=== PATIENT | male | born 1960 | race Caucasian/White ===

== ENCOUNTER 2017-05-12 05:20 | Inpatient (IN) | payer OTHER ==
[2017-05-12] VITALS (7 sets, daily range): BP systolic 110–140; BP diastolic 37–84
[~2017-05-12] VITALS: Ht 185.4 cm; Wt 113.4 kg
--- NOTE | ~2017-05-12 | O ---
[facility] [place] [address] OPERATIVE REPORT Name: YOU SANTILLAN Room #: 412-P [facility] IN M.R.#: [id number] Admission: 05/12/17 Attend Phys: Oliverio Crespo MD Discharge: Date of : 56 Report #: [id number] THIS REPORT FOR: //name// CC: Oliverio Griggs DATE OF SERVICE: 05/12/2017 PREOPERATIVE DIAGNOSIS: Multilevel degenerative lumbar spondylosis with spinal stenosis and radiculopathy, L3-L4, L4-L5 and L5-S1 levels. POSTOPERATIVE DIAGNOSIS: Multilevel degenerative lumbar spondylosis with spinal stenosis and radiculopathy, L3-L4, L4-L5 and L5-S1 levels. PROCEDURE: Bilateral decompressive laminectomy and foraminotomy for decompression of spinal stenosis and radiculopathy, L3-L4, L4-L5 and L5-S1 levels. SURGEON: Oliverio Crespo MD INDICATIONS: This 56-year-old gentleman complains of chronic progressive low back discomfort, but more severe radiating leg pain, numbness and weakness, more on the right than the left. These symptoms have been present for some time. We have discussed these issues in the past and recommended going ahead with surgical decompression. He elected to delay surgery and has tried to manage with more conservative measures, now has more significant dense radiating pain in the right leg and some sense of weakness. He occasionally has difficulty with ambulation. He has less severe symptoms on the left side. He has not had bowel or bladder symptoms. We have discussed once again treatment options and elected to go ahead with surgical decompression. I have explained that he does have some disk bulging at L3-L4 and L4-L5 levels with less severe bulge at L5-S1. These appeared to be chronic and firm disk bulge without soft disk herniation. The primary source of his spinal stenosis seems to be bony hypertrophy with facet spurring and hypertrophy of ligamentum. DESCRIPTION OF PROCEDURE: The patient was taken to the operating room where he was placed under general anesthesia. Prophylactic intravenous antibiotics were administered. He was turned to the prone position. The lower back was meticulously prepped and draped. C-arm was used to localize the appropriate levels. A skin incision was made extending from L3 down to the sacrum. This was carried along the paraspinal plane both toward the right and left. The paraspinal muscles were retracted out laterally exposing the spinous process and lamina at each level. The dissection was started distally at the lumbosacral junction. The canal was opened and found to be moderately tight at this level. Bony rongeurs were used to resect the spinous process and lamina. This was gradually advanced proximally to include the L5, L4, and L3 lamina both toward [address] [address] OPERATIVE REPORT Name: YOU SANTILLAN Room #: 412-P [facility] IN M.R.#: [id number] Admission: 05/12/17 Attend Phys: Oliverio Crespo MD Discharge: Date of : 56 Report #: [id number] the left and the right side. The facet joints for quite hypertrophied with significant spurring. There was also rather marked hypertrophy of the ligamentum causing significant stenosis, particularly at L3-L4 and L4-L5 levels. At L5-S1, the central canal was not so tight, but there was some foraminal narrowing, which was improved with undercutting of the facets and limited foraminotomy. C-arm was used to visualize the levels and confirm that I was above the L3 lamina and below the L5 lamina, which seemed to be clearly above and below the areas of significant stenosis. The side howe were debrided and undercut sufficiently to improve the foraminal stenosis. There was moderate constant oozing throughout the procedure while there were no large bleeders, small bleeders were addressed with cautery and packing. Nevertheless, total blood loss of the procedure was approximately 600 mL. The patient was stable throughout the procedure. At the conclusion once the dissection was finished, the wound was gently packed for several minutes and FloSeal was used in a small layer over the dura. This resulted in improved hemostasis. A single Hemovac was then left in the wound deep to the fascia, exiting through a separate stab incision. The fascia was then closed with multiple #1 Vicryl sutures. The subcutaneous tissues were closed with 0 Monocryl. The skin was closed with skin juan. A sterile dressing was applied. The patient was awakened and returned to the recovery room in good condition. <ELECTRONICALLY SIGNED> By: Oliverio Crespo MD 05/13/17 0932 [id number] Oliverio Crespo MD /nt
--- NOTE | ~2017-05-12 | D ---
[facility] [place] [address] DISCHARGE SUMMARY Name: YOU SANTILLAN Room #: 412-P [facility] IN ..#: [id number] Admission: 05/12/17 Attend Phys: Oliverio Crespo MD Discharge: 05/13/17 Date of : 56 Report #: [id number] THIS REPORT FOR: //name// CC: Oliverio Griggs DATE OF SERVICE: 05/13/2017 FINAL DIAGNOSIS: Multilevel degenerative lumbar spondylosis with spinal stenosis and radiculopathy. OPERATIONS AND PROCEDURES: Decompressive lumbar laminectomy for spinal stenosis L3, L4, and L5 levels. HISTORY OF PRESENT ILLNESS: This 56-year-old gentleman presents with back pain and progressive bilateral leg pain, numbness or weakness, worse on the right than left. His clinical radiographic findings are consistent with rather severe spinal stenosis at L3-4 and L4-5 with less severe stenosis at L5-S1. He has tried conservative measures without benefit. He has elected to go ahead with surgical decompression. HOSPITAL COURSE: The patient was admitted and taken to the operating room and underwent a multilevel decompression for spinal stenosis, surgery was difficult as there was moderate oozing throughout the procedure and there was rather marked bony hypertrophy and severe stenosis. Postoperatively, he seems to be doing well, the Hemovac drain has diminished its output. He has already been up ambulating in the [place], he notes his leg pain and numbness seemed to be improved. He does have moderate low back discomfort, but this seems to be well controlled with oral analgesics. He is anxious to go home today if possible. I have suggested he continue ambulation with assistance here through this morning or afternoon, but anticipate he can go home later today if he is safe and independent. DISCHARGE MEDICATIONS: Include metoprolol 50 mg daily, Benicar 40 mg daily, multivitamin once daily and hydrocodone 10/325 every 4 hours p.r.n. for pain. I have asked his to call me periodically to report on his progress or any questions, they may change the dressing periodically if necessary at home. I will plan to see him back in the office next week, if there are any issues or problems or the following week if he is doing well for suture removal at that point. <ELECTRONICALLY SIGNED> By: Oliverio Crespo MD 05/14/17 0814 [id number] Oliverio Crespo MD /nt
[~2017-05-12 05:20] MED LIST: BENICAR40 MG PO; CHLOR-TABLET4 MG PO; FISH OIL 1,2001 EAC4 PO; METOPROLOL SUCC50 MG PO; MULTIVITAMINS1 EAC7 PO
[2017-05-13] VITALS (7 sets, daily range): BP systolic 101–110; BP diastolic 55–67
== END 2017-05-13 13:56 | disposition home or self-care (01) | DRG 520 ==
LOC: OR 05:20 → TBA 05:21 → OR 12:59 → 4N 13:00 → OR 15:33 → 4N 05-13 13:56
PROC: 00NY0ZZ Release Lumbar Spinal Cord, Open Approach (ICD-10-PCS; principal; 2017-05-12)
DX: M48.06 Spinal stenosis, lumbar region (principal); M48.07 Spinal stenosis, lumbosacral region; M47.27 Other spondylosis with radiculopathy, lumbosacral region; Z88.0 Allergy status to penicillin
CPT/HCPCS: 10790; 50010; 50101; 50402; 50704; 50850; 51412; 51751; 56525; 62110; 62900; 70005

== ENCOUNTER 2020-04-14 06:07 | Inpatient (IN) | payer OTHER ==
[2020-04-08 10:45] LABS: HEMOGLOBIN 14.2 gm/dL (14.0-18.0); MCH 31.2 pg (26.0-34.0); MCHC 34.6 g/dL (28.0-37.0); MCV 90.3 fL (80.0-100.0); RBC 4.54 mil/uL (4.50-6.00); RDW 13.4 % (10.5-14.5); WBC 6.6 thou/uL (4.0-11.0)
[2020-04-08 10:50] LABS: URINE BILIRUBIN NEGATIVE (Negative); URINE BLOOD NEGATIVE (Negative); URINE CLARITY CLEAR; URINE COLOR YELLOW; URINE GLUCOSE-RANDOM* NEGATIVE (Negative); URINE KETONES NEGATIVE (Negative); URINE LEUKOCYTES-REFLEX NEGATIVE (Negative); URINE NITRITE-REFLEX NEGATIVE (Negative); URINE PROTEIN (DIPSTICK) NEGATIVE (Negative); URINE UROBILINOGEN 0.2 E.U./dl (0.2-1.0)
[2020-04-08 10:54] LABS: ALBUMIN 4.5 g/dL (3.4-5.0); CALCIUM 9.5 mg/dL (8.5-10.1); CREATININE 0.9 mg/dL (0.7-1.3); POTASSIUM 4.4 mmol/L (3.5-5.1)
[2020-04-08 10:56] LABS: PROTIME 10.5 Seconds (9.3-11.4)
[2020-04-14] VITALS (9 sets, daily range): BP systolic 110–136; BP diastolic 66–85
[~2020-04-14] VITALS: Ht 185.4 cm; Wt 123.4 kg
[~2020-04-14 06:07] MED LIST changes: +FISH OIL 1,0001 EAC9 PO; +NORVASC5 M1 PO; +ROSUVASTATIN CA10 MG PO
--- NOTE | 2020-04-14 11:27 | O ---
[facility] [place] [address] OPERATIVE REPORT Name: YOU SANTILLAN Room #: 447-P [facility] IN M.R.#: [id number] Admission: 04/14/20 Attend Phys: Oliverio Crespo MD Discharge: Date of : 56 Report #: [id number] THIS REPORT FOR: cc: Porfirio Griggs MD,Porfirio Crespo,Oliverio Urbina MD ~ CC: Oliverio Griggs DATE OF SERVICE: 04/14/2020 PREOPERATIVE DIAGNOSIS: Degenerative osteoarthritis, left knee with varus malalignment. POSTOPERATIVE DIAGNOSIS: Degenerative osteoarthritis, left knee with varus malalignment. PROCEDURE: Left total knee arthroplasty. SURGEON: Oliverio Crespo MD INDICATIONS: This 59-year-old gentleman complains of moderate chronic progressive left knee pain. He has had symptoms for many years. He has had a previous arthroscopic debridement showing marked degenerative change in the medial side, but rather significant degenerative change of the patella lateral compartment as well. He also has moderate varus malalignment. He has elected to go ahead with total knee replacement. DESCRIPTION OF PROCEDURE: The patient was taken to the operating room where he was placed under general anesthesia. A femoral nerve block was also applied. Prophylactic intravenous antibiotics were administered. The left lower extremity was meticulously prepped and draped. A thigh tourniquet was applied and inflated to 300 mmHg. An anterior longitudinal skin incision was made and carried through the medial retinaculum. Marked degenerative change in all 3 compartments was noted. The Calderon and Nephew knee system was utilized. Intramedullary guides were used on both the femur and the tibia. The femur was cut in 5 degrees of valgus and the tibia cut perpendicular to the long axis of the bone. A minimal bony resection was performed to allow some adjustment pending alignment and stability issues. Initially, the medial side was still quite tight and ligament release was performed. This allowed improvement in alignment, but there was still some balancing difficulty. I elected to adjust the tibial cut slightly accommodating for the slightly tight medial side. This adjustment seemed to work out nicely with improvement in alignment and stability. The femur was best suited for a size 6 femoral component. The tibia was also best suited for a size 6 tibial component. A 13 mm insert was required, as I had done moderate medial ligament release to correct the [address] [address] OPERATIVE REPORT Name: YOU SANTILLAN Room #: 447-P [facility] IN ..#: [id number] Admission: 04/14/20 Attend Phys: Oliverio Crespo MD Discharge: Date of : 56 Report #: [id number] imbalance issue and thus a larger polyethylene insert was necessary. The patellar surface was resected and a 35 mm patellar button fit nicely. Once the trial components were all inserted, the knee demonstrates full knee extension and flexion beyond 130 degrees with satisfactory stability in both varus and valgus stress. The patella seemed to track nicely and appeared to be stable. The trial components were removed. The surfaces were thoroughly irrigated and dried. The intramedullary canal was blocked with bone block on both the femoral and tibial sides. Methylmethacrylate cement was mixed and injected into the porous surface of the proximal tibia. The Calderon and Nephew size 6 Humera II left nonporous tibial base plate was then applied, this was impacted into position and seated nicely and appeared to be secure. Excess cement was removed from around its margin. A 13 mm polyethylene size 6 cruciate retaining liner was inserted. This was impacted into position and seated nicely and appeared to be secure. A size 6 left cruciate retaining Legion porous femoral component was impacted on the distal femur. It seated nicely and appeared to be secure. A 35 mm patellar button was cemented into place with appropriate anchor holes and secured with a patellar clamp until the cement had hardened. Once the cement was fully cured, alignment, range of motion and stability were once again assessed and felt to be satisfactory. The knee seemed stable in both varus and valgus stress and alignment seemed to be acceptable. The patella seemed to track nicely and appears to be stable. At this point, a single Hemovac was left in the wound exiting through a separate lateral stab incision. The tourniquet was deflated after a total tourniquet time of 63 minutes. Blood loss was estimated at 25 mL. The fascia was closed with multiple #1 Vicryl sutures. The subcutaneous tissues were closed with 0 Monocryl. The skin was closed with skin juan. Sterile dressing was applied. The patient was awakened and returned to recovery room in good condition. <ELECTRONICALLY SIGNED> By: Oliverio Crespo MD 04/14/20 1127 [id number] Oliverio Crespo MD /nt
[2020-04-15 04:52] VITALS: BP 144/86
[2020-04-15 06:00] LABS: HEMATOCRIT 33.6 % (42.0-52.0); HEMOGLOBIN 11.3 gm/dL (14.0-18.0); MCH 30.8 pg (26.0-34.0); MCHC 33.6 g/dL (28.0-37.0); MCV 91.6 fL (80.0-100.0); RBC 3.67 mil/uL (4.50-6.00); RDW 13.5 % (10.5-14.5); WBC 8.2 thou/uL (4.0-11.0)
[2020-04-15 07:35] VITALS: BP 126/78
[2020-04-15 09:21] LABS: CALCIUM 8.5 mg/dL (8.5-10.1); CREATININE 0.8 mg/dL (0.7-1.3); MAGNESIUM 1.8 mg/dL (1.8-2.4); POTASSIUM 4.2 mmol/L (3.5-5.1)
[2020-04-15 15:25] VITALS: BP 144/73
[2020-04-15 19:40] VITALS: BP 150/85
[2020-04-16 06:23] LABS: HEMATOCRIT 33.5 % (42.0-52.0); HEMOGLOBIN 11.2 gm/dL (14.0-18.0); MCHC 33.6 g/dL (28.0-37.0); MCV 92.3 fL (80.0-100.0); RBC 3.63 mil/uL (4.50-6.00); RDW 13.4 % (10.5-14.5); WBC 6.7 thou/uL (4.0-11.0)
[2020-04-16 08:36] VITALS: BP 125/79
[2020-04-16 17:19] VITALS: BP 145/75
[2020-04-16 20:20] VITALS: BP 137/75
[2020-04-17 06:24] LABS: HEMATOCRIT 32.4 % (42.0-52.0); HEMOGLOBIN 11.1 gm/dL (14.0-18.0); MCH 31.2 pg (26.0-34.0); MCHC 34.2 g/dL (28.0-37.0); MCV 91.4 fL (80.0-100.0); RBC 3.54 mil/uL (4.50-6.00); WBC 7.3 thou/uL (4.0-11.0)
[2020-04-17 06:41] VITALS: BP 120/83
[2020-04-17 08:10] VITALS: BP 124/74
[2020-04-17] MEDS ORDERED: XARELTO10 MG PO (08:24)
[2020-04-17] MEDS ORDERED: NORCO 10-325 T1 EACH PO (08:41)
[2020-04-17 09:35] VITALS: BP 124/74
--- NOTE | 2020-04-18 10:42 | D ---
[facility] [place] [address] DISCHARGE SUMMARY Name: YOU SANTILLAN Room #: 447-P [facility] IN .R.#: [id number] Admission: 04/14/20 Attend Phys: Oliverio Crespo MD Discharge: 04/17/20 Date of : 56 Report #: [id number] THIS REPORT FOR: cc: Porfirio Griggs MD,Porfirio Crespo,Oliverio Urbina MD ~ THIS REPORT FOR: //name// CC: Oliverio Griggs DATE OF SERVICE: 04/17/2020 FINAL DIAGNOSIS: End-stage degenerative arthritis, left knee. POSTOPERATIVE DIAGNOSIS: End-stage degenerative arthritis, left knee. OPERATION PROCEDURES: Left total knee replacement. HISTORY: This 59-year-old gentleman has progressive degenerative arthritis involving the left knee with significant pain and moderate deformity. He has tried conservative measures without much benefit. He has decided to go ahead with left total knee replacement at this time. HOSPITAL COURSE: The patient was admitted and taken to the operating room on 04/14/2020 and underwent left total knee replacement. He tolerated this quite well. Postoperatively, his course has been largely unremarkable. He had moderate Hemovac drainage, which has diminished and the drain has been removed. The dressing is dry. He has good alignment and range of motion of the left knee. His pain is well controlled now on oral analgesics. He has resumed his other routine medications. He started with organized therapy and has made good progress. He is using a walker for ambulation with full weightbearing and seems to be safe and independent at this time. He is anxious for hospital discharge and will plan assistance at home with family care. DISCHARGE MEDICATIONS: Include metoprolol 100 mg daily, amlodipine 5 mg daily, Xarelto 10 mg daily, hydrocodone 10 mg q.6 hours p.r.n. for pain. He will call me if any problems or questions. I will see him back in my office in 1 week for followup in 2 weeks for suture removal. <ELECTRONICALLY SIGNED> By: Oliverio Crespo MD 04/18/20 1042 [id number] Oliverio Crespo MD /nt
== END 2020-04-17 11:43 | disposition home or self-care (01) | DRG 470 ==
LOC: 4S 06:07 → TBA 06:07 → PRE 09:11 → 4S 10:38 → PRE 11:31 → 4S 04-17 11:43
PROVIDERS: ADMIT Orthopaedic Surgery; ATTEND Orthopaedic Surgery
PROC: 0SRD0J9 Replacement of Left Knee Joint with Synthetic Substitute, Cemented, Open Approach (ICD-10-PCS; principal; 2020-04-14)
PROC: 5A09357 Assistance with Respiratory Ventilation, Less than 24 Consecutive Hours, Continuous Positive Airway Pressure (ICD-10-PCS; 2020-04-15)
DX: M17.12 Unilateral primary osteoarthritis, left knee (principal); I10 Essential (primary) hypertension; Z20.828 Contact with and (suspected) exposure to other viral communicable diseases; G47.33 Obstructive sleep apnea (adult) (pediatric); E78.5 Hyperlipidemia, unspecified; G89.29 Other chronic pain; M54.9 Dorsalgia, unspecified; Z88.0 Allergy status to penicillin; Z90.49 Acquired absence of other specified parts of digestive tract; Z98.42 Cataract extraction status, left eye; Z98.41 Cataract extraction status, right eye; Z87.891 Personal history of nicotine dependence
CPT/HCPCS: 10102; 50010; 50101; 50415; 50954; 51130; 51225; 51412; 53364; 56525; 57095; 57103; 57104; 57180; 62110; 62900; 70005